=== PATIENT | female | born 1950 | race Caucasian/White ===

== ENCOUNTER 2018-03-02 09:31 | Inpatient (IN) | payer OTHER ==
[2018-03-02 11:12] LABS: Absolute Lymphocytes (CBC) 0.8 K/uL (0.7-4.9); Absolute Monocytes 0.8 K/uL (0.1-1.3)
[2018-03-02 11:16] LABS: Basophils % 0.1 % (0-1.3); Eosinophils % 0.3 % (0-4.4); Hematocrit 29.4 % (36.0-45.0); Lymphocytes % 6.4 % (15.3-44.8); MCH 32.5 pg (27.0-35.0); MCV 85.3 fL (80-100); Protime INR 0.97; RBC Red Blood Cell Count 3.45 M/uL (3.86-4.86)
[2018-03-02 11:29] LABS: Glucose Level 100 mg/dL (65-120)
[2018-03-02 11:30] LABS: Bicarbonate 30 mEq/L (21-31); Potassium 3.1 mEq/L (3.6-5.0)
[2018-03-02 11:32] LABS: Sodium Level 108 mEq/L (135-145)
[2018-03-02] MEDS ORDERED: ONDANSETRON 4 MG/2 ML VIAL ONE (11:36)
[2018-03-02 11:39] LABS: ALT/SGPT 55 IU/L (10-60); AST/SGOT 156 IU/L (10-42); Alkaline Phosphatase 57 IU/L (42-121); BUN Blood Urea Nitrogen 10 mg/dL (6-20); Bilirubin Direct 0.1 mg/dL (0-0.2); Bilirubin Total 0.4 mg/dL (0.3-1.2); Protein, Total 6.7 g/dL (6.0-8.3)
[2018-03-02 11:50] LABS: CKMB Creatine Kinase MB 95.3 ng/ml (0.3-4.0); Magnesium 1.4 mg/dL (1.8-2.5)
[2018-03-02 11:51] LABS: Creatine Phosphokinase 2983 IU/L (22-269)
[2018-03-02] MEDS ORDERED: NA CHLORIDE 3% 500 ML ONE ×2 (12:00→22:09)
[2018-03-02] MEDS ORDERED: MAGNESIUM SULFATE 1 gm IVPB 1 GM/100 ML BAG IV ONE (12:02)
--- NOTE | 2018-03-02 12:13 | ER ---
Nurse's Notes [facility] Name: Belem Villegas Age: 67 yrs Sex: Female : 1950 Arrival Date: 03/02/2018 Time: 09:35 Bed 18 Private MD: Samantha Angeles C Diagnosis: Vomiting;Hyponatremia;Hypomagnesemia Presentation: 03/02 09:52 Presenting complaint: Patient states: pt reports N/V for 3-4 days and being "foggy," em denies abd pain. Transition of care: patient was not received from another setting of care. Onset of symptoms was February 26, 2018. Initial Sepsis Screen: Does the patient meet any 2 criteria? No. Patient's initial sepsis screen is negative. Does the patient have a suspected source of infection? No. Patient's initial sepsis screen is negative. Care prior to arrival: None. 09:52 Method Of Arrival: Ambulatory em 09:52 Acuity: [place] 3 iw Historical: - Allergies: 09:56 No Known Allergies; em - Home Meds: 11:53 hydrochlorothiazide 12.5 mg Oral tab 1 tab once daily [Active]; levothyroxine 137 mcg em tab 1 tab once daily [Active]; ranitidine HCl 300 mg Oral cap 1 cap once daily [Active]; glimepiride 2 mg Oral tab 1 tab once daily [Active]; metoprolol tartrate 25 mg Oral tab 1 tab 2 times per day [Active]; rosuvastatin 20 mg oral tab 1 tab once daily [Active]; Janumet XR 100-1,000 mg oral TM24 [Active]; - PMHx: 09:56 Diabetes - NIDDM; Hyperlipidemia; Hypertension; Hypothyroidism; em - PSHx: 09:56 Hysterectomy; [place]. knee sx; em - Immunization history:: Adult Immunizations up to date. - Social history:: Smoking status: Patient/guardian denies using tobacco. Screenin:55 Abuse screen: Denies threats or abuse. Nutritional screening: No deficits noted. em Tuberculosis screening: No symptoms or risk factors identified. Fall Risk None identified. Assessment: 10:05 General: Appears in no apparent distress. uncomfortable, Behavior is calm, cooperative, em Reports reports N/V for 3-4 days, reports fever. Pain: Denies pain. Neuro: Level of Consciousness is awake, alert, obeys commands, Oriented to person, place, time, situation, Speech is normal, Reports feeling "foggy" . Cardiovascular: Capillary refill < 3 seconds Patient's skin is warm and dry. Respiratory: Airway is patent Respiratory effort is even, unlabored, Respiratory pattern is regular, symmetrical, Breath sounds are clear bilaterally. GI: Abdomen is round non-distended, Bowel sounds present X 4 quads. Abd is soft and non tender X 4 quads. Reports nausea, vomiting, Patient currently denies diarrhea. : No signs and/or symptoms were reported regarding the genitourinary system. EENT: No signs and/or symptoms were reported regarding the EENT system. Derm: Skin is intact, Skin is pink, warm \\T\\ dry. Musculoskeletal: Range of motion: intact in all extremities. 10:20 Reassessment: Patient appears in no apparent distress at this time. No changes from iw previously documented assessment. I agree with above assessment by Anand Sims LVN. 10:50 Reassessment: Patient appears in no apparent distress at this time. Patient and/or em family updated on plan of care and expected duration. Pain level reassessed. Patient is alert, oriented x 3, equal unlabored respirations, skin warm/dry/pink. pt returned from CT via wheelchair. 11:30 Reassessment: Patient appears in no apparent distress at this time. pt reports nausea, em NOE Woodson notified, new orders received. 11:50 Reassessment: Patient appears in no apparent distress at this time. Patient and/or em family updated on plan of care and expected duration. Pain level reassessed. Patient is alert, oriented x 3, equal unlabored respirations, skin warm/dry/pink. Patient states feeling better. Patient states symptoms have improved. 12:45 Reassessment: Patient appears in no apparent distress at this time. Patient and/or em family updated on plan of care and expected duration. Pain level reassessed. Patient is alert, oriented x 3, equal unlabored respirations, skin warm/dry/pink. pt at bedside, resting comfortably Patient denies pain at this time. 13:50 Reassessment: Patient appears in no apparent distress at this time. Patient and/or em family updated on plan of care and expected duration. Pain level reassessed. Patient is alert, oriented x 3, equal unlabored respirations, skin warm/dry/pink. 14:50 Reassessment: Patient appears in no apparent distress at this time. Patient and/or em family updated on plan of care and expected duration. Pain level reassessed. Patient is alert, oriented x 3, equal unlabored respirations, skin warm/dry/pink. Patient states feeling better. Patient states symptoms have improved. 19:25 General: Appears in no apparent distress. Behavior is calm, cooperative. Pain: Denies ea pain. Neuro: Level of Consciousness is awake, alert, obeys commands, Oriented to person, place, time, situation, Speech is normal. Cardiovascular: Heart tones S1 S2 present Patient's skin is warm and dry. Respiratory: Airway is patent Respiratory effort is even, unlabored, Respiratory pattern is regular, symmetrical, Breath sounds are clear bilaterally. GI: Abdomen is round non-distended, Bowel sounds present X 4 quads. Abd is soft and non tender X 4 quads. Reports nausea, vomiting. : No signs and/or symptoms were reported regarding the genitourinary system. EENT: No signs and/or symptoms were reported regarding the EENT system. Derm: Skin is intact, Skin is pink, warm \\T\\ dry. 20:05 Reassessment: Patient and/or family updated on plan of care and expected duration. Pain ea level reassessed. Patient is alert, oriented x 3, equal unlabored respirations, skin warm/dry/pink. Report called to receiving ICU nurse. Vital Signs: 09:57 BP 143 / 64; Pulse 55; Resp 16; Temp 99.3(O); Pulse Ox 95% on R/A; Weight 104.33 kg; em Height 5 ft. 6 in. (167.64 cm); Pain 0/10; 11:45 BP 149 / 84; Pulse 58; Resp 18; Pulse Ox 94% on R/A; em 12:30 BP 149 / 75; Pulse 58; Resp 16; Pulse Ox 95% on R/A; Pain 0/10; em 13:30 BP 137 / 75; Pulse 58; Resp 18; Temp 98.0; Pulse Ox 96% on R/A; Pain 0/10; em 14:31 BP 130 / 64; Pulse 62; Resp 19; Pulse Ox 96% on R/A; Pain 0/10; em 19:26 BP 157 / 96; Pulse 65; Resp 18; Temp 98.2; Pulse Ox 98% ; Pain 0/10; ea 09:57 Body Mass Index 37.12 (104.33 kg, 167.64 cm) em ED Course: 09:35 Patient arrived in ED. mr 09:36 Samantha Angeles MD is Private Physician. mr 09:43 SimsAnand, BLACKSMITH APPRENTICE is Primary Nurse. em 09:55 Chintan Villa, NOE [facility] pm1 09:55 Felipe Jimenez MD is Attending Physician. pm1 09:57 Arm band placed on. em 09:58 Patient has correct armband on for positive identification. Bed in low position. Call em light in reach. Side rails up X2. Adult w/ patient. 10:24 CT completed. Patient moved to CT via wheelchair. Patient moved back from CT. cw1 10:25 CT Head Brain wo Cont In Process Unspecified. EDMS 10:42 Chest Pa And Lat (2 Views) XRAY In Process Unspecified. EDMS 11:09 Initial lab(s) drawn, by me, sent to lab. EKG done, by ED staff, reviewed by Felipe Jimenez MD. Inserted saline lock: 20 gauge in right antecubital area, using aseptic technique. Blood collected. 12:06 Samantha Angeles MD is Hospitalizing Provider. pm1 12:30 No provider procedures requiring assistance completed. Inserted saline lock: 20 gauge em in left antecubital area, using aseptic technique. 13:26 Urine collected: Kumari catheter specimen, clear. Kumari cath inserted, using sterile ms technique, 18 Fr., by me, balloon inflated, to gravity drainage, urine specimen collected. 15:41 Triage completed. iw 16:45 Patient admitted, IV remains in place. iw Administered Medications: 11:50 Drug: Zofran 4 mg Route: IVP; Site: right antecubital; iw 12:15 Follow up: Response: No adverse reaction; Nausea is decreased em 12:16 Drug: Magnesium Sulfate 1 grams Route: IVPB; Infused Over: 1 hrs; Site: right em antecubital; 14:34 Follow up: IV Status: Completed infusion; IV Intake: 100ml em 12:25 Drug: Sodium Chloride 3 % 100 ml Volume: 500 ml; Route: IV; Rate: 50 ml/hr; Site: left em antecubital; 14:34 Follow up: IV Status: Completed infusion; IV Intake: 100ml em 14:44 Drug: NS 0.9% 1000 ml Route: IV; Rate: 75 ml/hr; Site: right antecubital; em 15:45 Follow up: IV Status: Completed infusion; IV Intake: 100ml em Point of Care Testing: Blood Glucose: 10:04 Blood Glucose: 96 mg/dL; em Ranges: Intake: 14:34 IV: 100ml; Total: 100ml. em 14:34 IV: 100ml; Total: 200ml. em 15:45 IV: 100ml; Total: 300ml. em Outcome: 12:12 Decision to Hospitalize by Provider. pm1 16:44 Admitted to ER Hold. [facility]. iw 16:45 Condition: stable iw 16:45 Instructed on the need for admit. 20:36 Patient left the ED. ea Signatures: Dispatcher [employer] Latia Alberts mr Sims, Anand, BLACKSMITH APPRENTICE BLACKSMITH APPRENTICE em Samira Samuel RN RN Latia Gutierrez ms Dong, Crystal cw1 Chintan Villa, CAN FEEDER CAN FEEDER pm1 Peyton Sanchez RN RN ea Corrections: (The following items were deleted from the chart) 10:10 09:57 BP 143 / 64; Pulse 55bpm; Resp 16bpm; Pulse Ox 95% RA; 104.33 kg; Height 5 ft. 6 em in.; BMI: 37.1; Pain 0/10; em 15:12 14:31 BP 130 / 64; Pulse 18bpm; Resp 19bpm; Pulse Ox 96% RA; Pain 0/10; em em 15:13 13:30 BP 137 / 75; Pulse 58bpm; Resp 18bpm; Pulse Ox 96% RA; Pain 0/10; em em
--- NOTE | 2018-03-02 12:13 | EDPHYS ---
Physician Documentation [facility] Name: Belem Villegas Age: 67 yrs Sex: Female : 1950 Arrival Date: 03/02/2018 Time: 09:35 Bed 18 Private MD: Samantha Angeles C ED Physician Felipe Jimenez HPI: 03/02 15:47 This 67 yrs old Female presents to ER via Ambulatory with complaints of pm1 Vomiting, Fever. 15:47 The patient presents to the emergency department with vomiting, 3-4 episodes of pm1 vomiting for the past 3 days. Patient with a total of 2 episodes of diarrhea since onset 3 days ago. Onset: The symptoms/episode began/occurred 3 day(s) ago. Possible causes: unknown. The symptoms are aggravated by food or liquid The symptoms are alleviated by nothing. Associated signs and symptoms: Pertinent positives: subjective fever, "fogginess", Pertinent negatives: abdominal pain, constipation, dysuria, GI bleeding. Severity of symptoms: in the emergency department the symptoms are worse. The patient has not experienced similar symptoms in the past. The patient has not recently seen a physician, the patient's primary care provider is Dr. Angeles. Patient presenting to the emergency department with 3 days of nausea and vomiting with 3-4 episodes daily. Patient with 2 episodes of diarrhea since onset. Patient denies abdominal pain, headache, chest pain. No shortness of breath. Patient reports that she feels "fogginess.". Historical: - Allergies: 09:56 No Known Allergies; em - Home Meds: 11:53 hydrochlorothiazide 12.5 mg Oral tab 1 tab once daily [Active]; levothyroxine 137 mcg em tab 1 tab once daily [Active]; ranitidine HCl 300 mg Oral cap 1 cap once daily [Active]; glimepiride 2 mg Oral tab 1 tab once daily [Active]; metoprolol tartrate 25 mg Oral tab 1 tab 2 times per day [Active]; rosuvastatin 20 mg oral tab 1 tab once daily [Active]; Janumet XR 100-1,000 mg oral TM24 [Active]; - PMHx: 09:56 Diabetes - NIDDM; Hyperlipidemia; Hypertension; Hypothyroidism; em - PSHx: 09:56 Hysterectomy; [place]. knee sx; em - Immunization history:: Adult Immunizations up to date. - Social history:: Smoking status: Patient/guardian denies using tobacco. ROS: 15:47 Eyes: Negative for injury, pain, redness, and discharge, ENT: Negative for injury, pm1 pain, and discharge, Neck: Negative for injury, pain, and swelling, Cardiovascular: Negative for chest pain, palpitations, and edema, Respiratory: Negative for shortness of breath, cough, wheezing, and pleuritic chest pain. 15:47 Back: Negative for injury and pain, : Negative for injury, bleeding, discharge, and swelling, MS/Extremity: Negative for injury and deformity, Skin: Negative for injury, rash, and discoloration. 15:47 Constitutional: Positive for poor PO intake, subjective fever, Negative for body aches, chills. 15:47 Abdomen/GI: Positive for nausea, vomiting, and diarrhea, Negative for abdominal pain. 15:47 Neuro: Negative for dizziness, numbness, syncope, near syncope, tingling, weakness. Exam: 15:47 Constitutional: This is a well developed, well nourished patient who is awake, alert, pm1 and in no acute distress. Head/Face: Normocephalic, atraumatic. Eyes: Pupils equal round and reactive to light, extra-ocular motions intact. Lids and lashes normal. Conjunctiva and sclera are non-icteric and not injected. Cornea within normal limits. Periorbital areas with no swelling, redness, or edema. ENT: Nares patent. No nasal discharge, no septal abnormalities noted. Tympanic membranes are normal and external auditory canals are clear. Oropharynx with no redness, swelling, or masses, exudates, or evidence of obstruction, uvula midline. Mucous membranes moist. Neck: Trachea midline, no thyromegaly or masses palpated, and no cervical lymphadenopathy. Supple, full range of motion without nuchal rigidity, or vertebral point tenderness. No Meningismus. Chest/axilla: Normal chest wall appearance and motion. Nontender with no deformity. No lesions are appreciated. Cardiovascular: Regular rate and rhythm with a normal S1 and S2. No gallops, murmurs, or rubs. No pulse deficits. Respiratory: Lungs have equal breath sounds bilaterally, clear to auscultation and percussion. No rales, rhonchi or wheezes noted. No increased work of breathing, no retractions or nasal flaring. Abdomen/GI: Soft, non-tender, with normal bowel sounds. No distension or tympany. No guarding or rebound. No evidence of tenderness throughout. Back: No spinal tenderness. No costovertebral tenderness. Full range of motion. Skin: Warm, dry with normal turgor. Normal color with no rashes, no lesions, and no evidence of cellulitis. MS/ Extremity: Pulses equal, no cyanosis. Neurovascular intact. Full, normal range of motion. 15:47 Neuro: Orientation: is normal, Mentation: is normal, Motor: moves all fours, Sensation: is normal, no obvious gross deficits. Vital Signs: 09:57 BP 143 / 64; Pulse 55; Resp 16; Temp 99.3(O); Pulse Ox 95% on R/A; Weight 104.33 kg; em Height 5 ft. 6 in. (167.64 cm); Pain 0/10; 11:45 BP 149 / 84; Pulse 58; Resp 18; Pulse Ox 94% on R/A; em 12:30 BP 149 / 75; Pulse 58; Resp 16; Pulse Ox 95% on R/A; Pain 0/10; em 13:30 BP 137 / 75; Pulse 58; Resp 18; Temp 98.0; Pulse Ox 96% on R/A; Pain 0/10; em 14:31 BP 130 / 64; Pulse 62; Resp 19; Pulse Ox 96% on R/A; Pain 0/10; em 19:26 BP 157 / 96; Pulse 65; Resp 18; Temp 98.2; Pulse Ox 98% ; Pain 0/10; ea 09:57 Body Mass Index 37.12 (104.33 kg, 167.64 cm) em MDM: 09:56 Patient medically screened. pm1 12:05 Data reviewed: vital signs. Data interpreted: Pulse oximetry: on room air is 94 %. pm1 Interpretation: normal. Counseling: I had a detailed discussion with the patient and/or guardian regarding: the historical points, exam findings, and any diagnostic results supporting the discharge/admit diagnosis, lab results, radiology results, the need for further work-up and treatment in the hospital. 12:58 Physician consultation: A Karthik COLINDRES was contacted at 12:58, regarding admission, pm1 patient's condition, After completion of 100 mL infusion of hypertonic 3% solution, perform labs: stat Chem 7, cortisol level, and procalcitonin level and start infusion of NS at 75 cc/hr . Call back with lab results and Admission to ICU. . 15:47 Physician consultation: A Karthik COLINDRES was contacted at 15:48, regarding patient's pm1 condition, repeat BMP and cortisol level results, would like medications started, NS 125 mL/hr. 03/02 10:11 Order name: Basic Metabolic Panel; Complete Time: 11:59 pm03/02 10:11 Order name: BNP; Complete Time: 11:59 pm03/02 10:11 Order name: CBC with Diff; Complete Time: 14:12 pm03/02 10:11 Order name: Ckmb; Complete Time: 11:59 pm03/02 10:11 Order name: CPK; Complete Time: :59 pm03/02 10:11 Order name: LFT's; Complete Time: 11:59 pm03/02 10:11 Order name: Magnesium; Complete Time: 11:59 pm03/02 10:11 Order name: PT-INR; Complete Time: 11:33 pm03/02 10:11 Order name: Ptt, Activated; Complete Time: 11:33 pm03/02 10:11 Order name: Troponin (emerg Dept Use Only); Complete Time: 11:59 pm03/02 10:11 Order name: Glucose, Ancillary Testing; Complete Time: 10:13 EDMS 03/02 10:42 Order name: TSH; Complete Time: 12:12 pm03/02 11:19 Order name: CBC Smear Scan; Complete Time: 14:12 EDMS 03/02 11:45 Order name: Osmolality, Serum; Complete Time: 12:58 pm03/02 10:11 Order name: CT Head Brain wo Cont; Complete Time: 15:19 pm03/02 10:11 Order name: Chest Pa And Lat (2 Views) XRAY; Complete Time: 15:19 pm03/02 11:45 Order name: Urine Osmolality; Complete Time: 13:45 pm03/02 11:45 Order name: Urine Sodium Random; Complete Time: 14:12 pm03/02 13:27 Order name: Urine Dipstick--Ancillary (enter results) eb 03/02 13:48 Order name: Urine Dipstick-Ancillary; Complete Time: 14:12 EDMS 03/02 14:30 Order name: Procalcitonin pm1 03/02 14:30 Order name: Chem 7 pm03/02 14:30 Order name: Cortisol pm1 03/02 15:04 Order name: Basic Metabolic Panel; Complete Time: 15:43 EDMS 03/02 15:20 Order name: Cortisol; Complete Time: 15:43 EDMS 03/02 16:44 Order name: Chem 7 iw 03/02 17:06 Order name: Basic Metabolic Panel; Complete Time: 17:24 EDMS 03/02 18:47 Order name: Basic Metabolic Panel EDMS 03/02 18:47 Order name: Magnesium EDMS 03/02 10:11 Order name: EKG; Complete Time: 10:11 pm1 03/02 10:11 Order name: Cardiac monitoring; Complete Time: 11:05 pm03/02 10:11 Order name: EKG - Nurse/Tech; Complete Time: 11:05 pm1 03/02 10:11 Order name: IV Saline Lock; Complete Time: 11:05 pm03/02 10:11 Order name: Labs collected and sent; Complete Time: 11:05 pm1 03/02 10:11 Order name: O2 Per Protocol; Complete Time: 11:05 pm1 03/02 10:11 Order name: O2 Sat Monitoring; Complete Time: 11:05 pm03/02 10:11 Order name: Urine Dipstick-Ancillary (obtain specimen); Complete Time: 13:26 pm1 Administered Medications: 11:50 Drug: Zofran 4 mg Route: IVP; Site: right antecubital; iw 12:15 Follow up: Response: No adverse reaction; Nausea is decreased em 12:16 Drug: Magnesium Sulfate 1 grams Route: IVPB; Infused Over: 1 hrs; Site: right em antecubital; 14:34 Follow up: IV Status: Completed infusion; IV Intake: 100ml em 12:25 Drug: Sodium Chloride 3 % 100 ml Volume: 500 ml; Route: IV; Rate: 50 ml/hr; Site: left em antecubital; 14:34 Follow up: IV Status: Completed infusion; IV Intake: 100ml em 14:44 Drug: NS 0.9% 1000 ml Route: IV; Rate: 75 ml/hr; Site: right antecubital; em 15:45 Follow up: IV Status: Completed infusion; IV Intake: 100ml em Point of Care Testing: Blood Glucose: 10:04 Blood Glucose: 96 mg/dL; em Ranges: Critical Glucose Levels:Adult <50 mg/dl or >400 mg/dl <40 mg/dl or >180 mg/dl Disposition: 03/03 12:39 Co-signature as Attending Physician, Felipe Jimenez MD. Disposition: 03/02/18 12:12 Hospitalization ordered by Samantha Angeles for Inpatient Admission. Preliminary diagnosis are Vomiting, Hyponatremia, Hypomagnesemia. - Bed requested for Intensive Care Unit. - Status is Inpatient Admission. ea - Condition is Fair. - Problem is new. - Symptoms have improved. UTI on Admission? No Signatures: Dispatcher [employer] Marlene Clark RN RN dw Munoz, Edgar, POINTER HELPER POINTER HELPER em Samira Samuel RN RN iw Marinas, Patrick, CONTENT STRATEGIST CONTENT STRATEGIST pm1 Peyton Sanchez RN RN ea Starr, Gregory, MD MD Sofia Ivory
[2018-03-02 13:48] LABS: Urine Blood 2+ (NEG); Urine Glucose NEGATIVE (NEG); Urine Protein 3+ (NEG); Urine Specific Gravity 1.025 (1.005-1.030); Urine pH 6.5 (5.0-7.0)
[2018-03-02 14:04] LABS: Urine White Blood Cell Casts OK
[2018-03-02 14:05] LABS: Anisocytosis 1+; Blood Morphology Comment NOTED (NOT SEEN); Platelet Estimate ADEQ
[2018-03-02] MEDS ORDERED: NA CHLORIDE 0.9% 1,000 ML ONE (14:40)
[2018-03-02 15:04] LABS: Glucose Level 82 mg/dL (65-120)
[2018-03-02 15:05] LABS: BUN Blood Urea Nitrogen 9 mg/dL (6-20)
--- NOTE | 2018-03-02 15:14 | RAD REPORT ---
EXAM DESCRIPTION: CT - Head Brain Wo Cont - 03/02/2018 10:25 am CLINICAL HISTORY: Transient alteration of awareness. Hearing Examiner malfunction precluded earlier written report. A verbal report was telephoned to the ref erring clinician at the time of the study. COMPARISON: None. TECHNIQUE: Axial 5 mm thick images of the head were obtained without IV contrast. All CT scans are performed using dose optimization technique as appropriate and may include automated exposure control or mA/KV adjustment according to patient size. FINDINGS: No intracranial hemorrhage, mass, edema or shift of mid-line structures. No acute infarcti on changes seen. No abnormal extra-axial fluid collections. Ventricles are normal. Mastoid air cells and visualized portions of the paranasal sinuses are clear. No acute bony findings. IMPRESSION: Negative non-contrast CT head examination.
--- NOTE | 2018-03-02 15:16 | RAD REPORT ---
EXAM DESCRIPTION: RAD - Chest Pa And Lat (2 Views) - 03/02/2018 10:45 am CLINICAL HISTORY: Cough, fever. Fashion Patternmaker malfunction precluded earlier dictation. COMPARISON: September 2011 TECHNIQUE: PA and lateral views of the chest were obtained. FINDINGS: The lungs are underinflated. Lateral view has substantial motion degradation. Interstitial markings are prominent in each lung base. No large consolidation. Failure is unlikely. Trachea is mi dline. Vasculature is within limits of normal. Heart size is normal for body habitus and portable i maging. No pleural effusion or pneumothorax seen. No acute bony finding noted. No aortic abnormalit y. IMPRESSION: Prominent interstitial markings at both lung bases. This is increased from 2010. A progr essive fibrotic process or an interstitial infiltrates/ edema could have this presentation. Significant failure or volume overload are doubtful.
[2018-03-02 15:22] LABS: Bicarbonate 30 mEq/L (21-31)
[2018-03-02 15:24] LABS: Sodium Level 108 mEq/L (135-145)
[2018-03-02] MEDS ORDERED: D50W 25 GM/50 ML SYRINGE IV PRN (15:28)
[2018-03-02] MEDS ORDERED: ACETAMINOPHEN 500 MG TAB PO PRN (15:28)
[2018-03-02] MEDS ORDERED: GLUCAGON 1 MG/VIAL IM PRN (15:28)
[2018-03-02] MEDS: NA CHLORIDE 0.9% 1,000 ML IV SCH ×2 (16:30→21:00)
[2018-03-02] MEDS: INSULIN -REGULAR HUMAN 50 UNIT/0.5 ML ML SQ SCH ×2 (16:30→21:00)
[2018-03-02] MEDS: ENOXAPARIN 40 MG/0.4 ML SQ SCH (17:00)
[2018-03-02 17:06] LABS: BUN Blood Urea Nitrogen 9 mg/dL (6-20); Glucose Level 64 mg/dL (65-120)
[2018-03-02 17:14] LABS: Bicarbonate 29 mEq/L (21-31)
[2018-03-02 17:17] LABS: Sodium Level 109 mEq/L (135-145)
[2018-03-02] MEDS ORDERED: POTASSIUM 25 MEQ EFFERV TAB ONE (17:51)
[2018-03-02] MEDS: CEFTRIAXONE/SWI 1gm 1 GM/10 ML SYR IV SCH (18:00)
[2018-03-02] MEDS ORDERED: POTASSIUM 25 MEQ EFFERV TAB PO ONE (18:17)
[2018-03-02] MEDS ORDERED: CEFTRIAXONE/SWI 1gm 1 GM/10 ML SYR ONE (18:24)
[2018-03-02] MEDS ORDERED: ENOXAPARIN 40 MG/0.4 ML SQ ONE (18:24)
[2018-03-02 18:43] LABS: BUN Blood Urea Nitrogen 9 mg/dL (6-20); Bicarbonate 29 mEq/L (21-31); Glucose Level 115 mg/dL (65-120); Magnesium 1.5 mg/dL (1.8-2.5)
[2018-03-02 18:47] LABS: Sodium Level 108 mEq/L (135-145)
[2018-03-02] MEDS ORDERED: Magnesium Sulfate 2gm IVPB 2 G/50 ML BAG IV ONE ×2 (19:32→19:42)
[2018-03-02 20:49] LABS: BUN Blood Urea Nitrogen 9 mg/dL (6-20); Glucose Level 103 mg/dL (65-120)
[2018-03-02 20:54] LABS: Bicarbonate 27 mEq/L (21-31); Potassium 3.5 mEq/L (3.6-5.0)
[2018-03-02] MEDS: FAMOTIDINE 20 MG/2 ML VIAL IV SCH (21:00)
[2018-03-02] MEDS ORDERED: CEFTRIAXONE 1 GM/NS 50 ML 1 GM/50 ML BAG IV SCH (21:00)
[2018-03-02 21:02] LABS: Sodium Level 107 mEq/L (135-145)
[2018-03-02] MEDS ORDERED: NA CHLORIDE 3% 500 ML IV SCH (22:00)
[2018-03-02] MEDS: NA CHLORIDE 3% 500 ML IV SCH (22:13)
[2018-03-03 01:25] LABS: BUN Blood Urea Nitrogen 8 mg/dL (6-20); Glucose Level 105 mg/dL (65-120)
[2018-03-03 01:49] LABS: Bicarbonate 28 mEq/L (21-31); Potassium 3.3 mEq/L (3.6-5.0); Sodium Level 110 mEq/L (135-145)
[2018-03-03 05:03] LABS: Absolute Neutrophil 10.5 K/uL (1.8-8.0); Basophils % 0.2 % (0-1.3); Eosinophils % 0.8 % (0-4.4); Hematocrit 31.3 % (36.0-45.0); Lymphocytes % 7.7 % (15.3-44.8); MCH 31.2 pg (27.0-35.0); MCV 86.9 fL (80-100); MPV 8.6 fL (7.6-11.3); Monocytes % 7.6 % (3.3-12.3)
[2018-03-03] MEDS: CEFTRIAXONE/SWI 1gm 1 GM/10 ML SYR IV SCH ×2 (05:11→17:13)
[2018-03-03 05:30] LABS: ALT/SGPT 57 IU/L (10-60); AST/SGOT 146 IU/L (10-42); Albumin 3.8 g/dL (3.2-5.5); Alkaline Phosphatase 58 IU/L (42-121); BUN Blood Urea Nitrogen 7 mg/dL (6-20); Bilirubin Direct 0.1 mg/dL (0-0.2); Bilirubin Total 0.6 mg/dL (0.3-1.2); Glucose Level 116 mg/dL (65-120); HDL Cholesterol 47 mg/dL (29-89); LDL Cholesterol, Calculated 33 (<130); Protein, Total 6.4 g/dL (6.0-8.3)
[2018-03-03 05:31] LABS: Bicarbonate 27 mEq/L (21-31); Potassium 3.2 mEq/L (3.6-5.0)
[2018-03-03 05:33] LABS: CKMB Creatine Kinase MB 60.8 ng/ml (0.3-4.0); Creatine Phosphokinase 2056 IU/L (22-269); Sodium Level 108 mEq/L (135-145)
[2018-03-03 06:26] LABS: Magnesium 1.5 mg/dL (1.8-2.5)
--- NOTE | 2018-03-03 06:43 | HP ---
Date of Admission: 03/02/2018 Chief Complaint: Feeling weak, dizzy, cough, vomiting. History Of Present Illness: A 67-year-old female patient, who was doing fine in her normal usual sta te of health until last few days. She has been having some cough, coughing up some clear mucus, but also some vomiting, nausea. Has very poor appetite. Last 2 days, she has not had anything to eat or drink as described by her and she is taking all her medications as prescribed. She has been feeling extremely weak, unsteady on her feet and somewhat confused. No head injury. No abdominal p ain. No diarrhea. She was brought into the emergency room. She was evaluated. I saw her also in t emergency room and further workup was done in the ER, which came back with severe hyponatremia wit h her serum sodium level of 108. Decision was made to admit her to intensive care unit for further e valuation and management of this problem. Allergies: NO KNOWN ALLERGIES. Medications: Amlodipine 5 mg p.o. daily, Crestor 20 mg p.o. daily, glimepiride 2 mg she takes one ta blet every day with breakfast, hydrochlorothiazide 12.5 mg p.o. daily, Janumet XR 100/1000 mg 1 p.o. daily with evening meal, levothyroxine 137 mcg p.o. daily, metoprolol 50 mg tablet she takes half tab let twice a day, ranitidine 300 mg at bedtime, Xyzal 5 mg daily as needed for allergies. Review of Systems: PAY STATION COLLECTOR: As mentioned above. GI: As mentioned above. RESPIRATORY: As mentioned above. All other systems reviewed and negative. Past Medical History: Significant for hypertension, mixed hyperlipidemia, type 2 diabetes mellitus, hypothyroidism, gastroesophageal reflux disease, allergic rhinitis. Also significant for coronary ar raul disease and the patient had a cardiac cath done July 13, 2009 and it showed 30% stenosis of LAD and no intervention was done. Past Surgical History: Arthroscopic knee surgery and hysterectomy. Family History: Significant for diabetes mellitus and heart disease, liver problem with hepatitis C. Social History: Occasional smoking, use of alcohol negative. Physical Examination: Vital Signs: When she first came into the emergency room; blood pressure 143/64, pulse 55, respirato ry rate 16, temperature 99.3, pulse ox 95%, weight 104.33 kg, height 5 feet 6 inches. General: The patient is awake, alert, but appears weaker than normal. A little slow to respond when I am asking her questions. HEENT: Head atraumatic, normocephalic. Conjunctivae nonerythematous. Sclerae white. Mouth, no thr ush or edema noted. Ears/Nose, no mass, lesion, discharge noted. Neck: Supple. No JVD, lymph nodes, bruit, thyromegaly noted. Lungs: Bilateral good equal air entry. Clear to auscultation. No rhonchi. No rales. Heart: Normal heart sounds, no murmur or gallop. Abdomen: Soft, bowel sounds normal. No guarding, rigidity, tenderness, mass, hepatosplenomegaly, dis tention, or bruit noted. Extremities: No leg edema. No calf tenderness. Skin: No rash, ulcer, cellulitis. Lymphatics: No lymph node enlargement in neck, supraclavicular, infraclavicular region. Neuro: No focal neurological deficit. Chest: Unremarkable. External Genitalia: Deferred. Rectal: Deferred. Laboratory Data: Chest x-ray prominent interstitial marking, both lung bases, increased from 2011. This could indicate either progressive fibrotic change or infiltrate or edema pattern. CAT scan of t he head without contrast, no acute ST-T changes. White count 12.6, hemoglobin 11.2, platelets 342, 8 7% neutrophils. INR 0.97. Sodium 108, potassium 3.1, chloride 67, bicarb 30, BUN 10, creatinine 0.4 2, glucose 100. Magnesium 1.4. Liver function tests, SGOT 156, SGPT 55, alkaline phosphatase 57. T otal bilirubin 0.4, CPK 2983, CK-MB 95.3. Troponin less than 0.03. BNP 246. TSH 1.26. Serum osmol ality, 219. Random serum cortisol 17.2. Urine osmolality 547, urine sodium 37. Urinalysis negative for nitrite, esterase, 2+ blood, 3+ protein. Impression: 1.Hyponatremia. 2.Hypokalemia. 3.Hypomagnesemia. 4.Rhabdomyolysis. 5.Rule out pneumonia. 6.Anemia. 7.Hypertension. 8.Type 2 diabetes mellitus. 9.Mixed hyperlipidemia. 10.Hypothyroidism. 11.Allergic rhinitis. 12.Gastroesophageal reflux disease. Plan: Admit the patient to hospital for further evaluation and management of this problem. The george ent is appropriate for inpatient and is expected to spend 2 midnights in the hospital. She will be a dmitted to intensive care unit with this severe hyponatremia problem. We will go ahead and get a fas ting lipid profile done tomorrow morning and cortisol stimulation test done tomorrow morning. This c ould be very well SIADH and she gets regular blood tests done on outpatient basis and she has not had this kind of problem before. Her last blood work from December 05, 2017 had shown serum sodium of 13 8 and on September 04, 2017, it was 137. So, this is rather a new problem. We will try to investigate to see if she has any adrenal insufficiency and also will be interested in looking at her triglyceri de tomorrow morning. In any case, it appears that this might be a case of syndrome of inappropriate antidiuretic hormone secretion. We will not give her any hydrochlorothiazide. Give her IV fluid per order. After I saw her, she received 3% hypertonic saline solution 50 cc/hour x2 hours. So, total 100 cc of that fluid and after that, she has been getting normal saline at 125 cc/hour per order. We will monitor her sodium level closely and try to increase the sodium level slowly to avoid any compl ications from rapid rise. She has had 3 different blood tests done for monitoring and we will do ano ther one this evening and then make decision whether we need to get her back on 3% saline solution ov ernight or not. Electrolytes will be replaced per protocol. Empiric antibiotics will be given using ceftriaxone. We will go ahead and give DVT prophylaxis using Lovenox, GI prophylaxis will be given using famotidine. Keep her on clear liquid diet and we will go ahead and keep her n.p.o. after midni ght for cortisol stimulation test. Monitor fingerstick blood sugar closely. As she has not been eat ing well and was taking her medications, we will monitor her closely for hypoglycemia and if she does have hypoglycemia, we will treat with IV D50. The patient gets regular cancer screening test. Her last mammogram was in December of last year and when we saw her this year in December, did request ma mmogram, which was scheduled for January 07, 2018, but it appears that the patient has not gone for that particular mammogram, but last mammogram from December last year was normal. Her last colonoscopy w as in 2013 showing rectal polyp. FADIA/MODTona Voice ID: [id number]
[2018-03-03] MEDS: INSULIN -REGULAR HUMAN 50 UNIT/0.5 ML ML SQ SCH ×5 (07:17→21:00)
[2018-03-03] MEDS ORDERED: Magnesium Sulfate 2gm IVPB 2 G/50 ML BAG IV ONE (07:34)
[2018-03-03] MEDS ORDERED: SODIUM CHLORIDE 0.9% 10ML INJ IV ONE (08:00)
[2018-03-03] MEDS ORDERED: COSYNTROPIN 0.25 MG VIAL IV ONE (08:00)
[2018-03-03] MEDS ORDERED: HOME MED 1 EA UNK (Levothyroxine Sodium [Levothyroxine Sodium] 137 MCG) PO SCH (09:00)
[2018-03-03] MEDS: NA CHLORIDE 3% 500 ML IV SCH (09:22)
[2018-03-03 09:55] LABS: BUN Blood Urea Nitrogen 5 mg/dL (6-20); Glucose Level 93 mg/dL (65-120)
[2018-03-03 10:03] LABS: Bicarbonate 27 mEq/L (21-31)
[2018-03-03] MEDS: AMLODIPINE 5 MG TAB PO SCH (10:10)
[2018-03-03] MEDS: LEVOTHYROXINE SOD 0.112 MG TAB PO SCH (10:10)
[2018-03-03] MEDS: FAMOTIDINE 20 MG/2 ML VIAL IV SCH ×2 (10:10→22:18)
[2018-03-03] MEDS: LEVOTHYROXINE SOD 0.025 MG TAB PO SCH (10:10)
[2018-03-03] MEDS: METOPROLOL TAR 25 MG TAB PO SCH ×2 (10:10→22:17)
[2018-03-03 10:21] LABS: Sodium Level 116 mEq/L (135-145)
--- NOTE | 2018-03-03 10:24 | RAD REPORT ---
EXAM DESCRIPTION: RAD - Chest Single View - 03/03/2018 10:09 am CLINICAL HISTORY: Device placement PICC line placement COMPARISON: March 02 2018 FINDINGS: A PICC line has been inserted with its tip 1 centimeter into the right atrium. No other change is noted. IMPRESSION: A PICC line has been inserted with its tip 1 centimeter into the right atrium.
--- NOTE | 2018-03-03 10:32 | EKG ---
Test Date: 2018-03-02 Test Time: 11:03:00 Corporate Claims Examiner: MEASUREMENT RESULTS: Intervals: Rate: 54 VA: 302 QRSD: 104 QT: 448 QTc: 424 [place]: P: 32 VA: 302 QRS: -6 T: 50 INTERPRETIVE STATEMENTS: Sinus bradycardia with 1st degree AV block Minimal voltage criteria for LVH, may be normal variant Borderline ECG Compared to ECG 03/02/2018 11:01:19 Left ventricular hypertrophy now present Electronically Signed On 03-03-18 10:31:30 CDT by Hipolito Love
--- NOTE | 2018-03-03 10:32 | EKG ---
Test Date: 2018-03-02 Test Time: 11:01:19 Medicaid Specialist: MEASUREMENT RESULTS: Intervals: Rate: 57 MS: 278 QRSD: 114 QT: 482 QTc: 469 [place]: P: 34 MS: 278 QRS: -2 T: 57 INTERPRETIVE STATEMENTS: Sinus bradycardia with 1st degree AV block Otherwise normal ECG Compared to ECG 04/19/2002 12:31:00 First degree AV block now present Sinus tachycardia no longer present Electronically Signed On 03-03-18 10:31:33 CDT by Hipolito Love
[2018-03-03 10:35] LABS: Magnesium 1.9 mg/dL (1.8-2.5)
[2018-03-03] MEDS: KCL 20 MEQ/100 mL IVPB 20 MEQ/100 ML BAG IV SCH ×2 (10:52→12:31)
[2018-03-03] MEDS ORDERED: NA CHLORIDE 0.9% 1,000 ML IV SCH (11:00)
[2018-03-03 14:10] LABS: BUN Blood Urea Nitrogen 6 mg/dL (6-20); Bicarbonate 30 mEq/L (21-31); Glucose Level 182 mg/dL (65-120); Potassium 4.3 mEq/L (3.6-5.0)
[2018-03-03 14:14] LABS: Sodium Level 111 mEq/L (135-145)
[2018-03-03] MEDS ORDERED: NA CHLORIDE 3% 500 ML IV SCH ×2 (14:40→19:00)
[2018-03-03] MEDS ORDERED: FUROSEMIDE 40 MG/4 ML VIAL IV ONE (16:00)
[2018-03-03] MEDS: ENOXAPARIN 40 MG/0.4 ML SQ SCH (17:13)
[2018-03-03 17:34] LABS: BUN Blood Urea Nitrogen 7 mg/dL (6-20); Bicarbonate 29 mEq/L (21-31); Glucose Level 132 mg/dL (65-120); Potassium 4.2 mEq/L (3.6-5.0)
[2018-03-03 17:35] LABS: Sodium Level 116 mEq/L (135-145)
[2018-03-03 21:09] LABS: Potassium 3.5 mEq/L (3.6-5.0)
[2018-03-03] MEDS ORDERED: ALPRAZOLAM 0.25 MG TABLET PO PRN (21:59)
--- NOTE | 2018-03-03 23:40 | PN ---
Date of Progress Note: 03/03/2018 Subjective: The patient was seen this morning for followup. Lying in bed, not in any distress. She is feeling much better. She is back to her normal self. Laughing while talking to me and this is her baseline. So, overall there is improvement in her mental status since yesterday. No shortness of breath. No nausea, no vomiting. She is tolerating liquid diet well and we will advance her diet today to diabetic diet. Objective: Vital Signs: Reviewed. HEENT: Unremarkable. Lungs: Clear to auscultation. Heart: Heart sounds normal. Abdomen: Soft. Bowel sounds normal. No guarding, rigidity, tenderness, or distention. Extremities: No leg edema. Laboratory Data: White count 12.6, hemoglobin 11.2, and platelet count 291. Her sodium level at 1 a.m. was 110 with potassium 3.3, chloride 70. Her glucose dropped down to 75 at 3:23 a.m. and she received IV D50, and at 3:57, her sodium was 108, potassium 3.2, chloride 72. We have done frequent monitoring of her electrolytes, and with 3% hypertonic saline solution, her sodium level went up to 116, and at that time, we stopped her 3% saline solution as it went up from 108 to 116 over 3-4-hour period of time, and then subsequent sodium dropped down to 111. At that time, we started 3% saline solution at 30 cc/hour and last sodium from 5 p.m. today is 116 again. Impression: 1. Hyponatremia. 2. Syndrome of inappropriate antidiuretic hormone. 3. Rule out pneumonia. 4. Hypertension. 5. Type 2 diabetes mellitus. 6. Hyperlipidemia. 7. Rhabdomyolysis. Plan: The patient's CPK this morning was 2055. We will go ahead and monitor that. Renal function is normal. Cortisol stimulation test was done this morning. We will follow up on results. Her sodium level will be monitored closely and our goal is to slowly increase the sodium level and avoid any rapid rise in sodium. She is responding very well to hypertonic saline solution and we will repeat another blood work this evening. Depending on that, we will decide what to do with hypertonic saline solution overnight. She is tolerating her diabetic diet very well. Physical Therapy consult was requested to start helping the patient to ambulate. She is requesting something to help her with sleep at night time. She takes Tylenol PM at home, but we will go ahead and try to give her medication like alprazolam. We will continue current antibiotic and DVT prophylaxis with Lovenox. I will see her tomorrow for followup. The patient will remain in ICU while she is getting hypertonic saline solution. There is a good possibility that she will remain in ICU tomorrow and possible transfer out of ICU to regular room day after tomorrow depending on her condition. Details and plan of treatment discussed with her. FADIA/MODTona Voice ID: [id number] Report ID: [id number] RUTHIE
[2018-03-04 01:50] LABS: BUN Blood Urea Nitrogen 7 mg/dL (6-20); Glucose Level 107 mg/dL (65-120)
[2018-03-04 02:03] LABS: Bicarbonate 31 mEq/L (21-31); Potassium 3.5 mEq/L (3.6-5.0); Sodium Level 122 mEq/L (135-145)
[2018-03-04] MEDS: CEFTRIAXONE/SWI 1gm 1 GM/10 ML SYR IV SCH ×2 (06:06→17:03)
[2018-03-04] MEDS: LEVOTHYROXINE SOD 0.112 MG TAB PO SCH (06:06)
[2018-03-04] MEDS: LEVOTHYROXINE SOD 0.025 MG TAB PO SCH (06:06)
[2018-03-04 06:19] LABS: BUN Blood Urea Nitrogen 6 mg/dL (6-20); Bicarbonate 33 mEq/L (21-31); Creatine Phosphokinase 498 IU/L (22-269); Glucose Level 97 mg/dL (65-120); Magnesium 1.9 mg/dL (1.8-2.5); Potassium 3.7 mEq/L (3.6-5.0); Sodium Level 128 mEq/L (135-145)
[2018-03-04 06:46] LABS: Absolute Lymphocytes (CBC) 0.9 K/uL (0.7-4.9); Absolute Monocytes 0.9 K/uL (0.1-1.3); Absolute Neutrophil 5.2 K/uL (1.8-8.0); Basophils % 0.6 % (0-1.3); Eosinophils % 1.9 % (0-4.4); Lymphocytes % 12.7 % (15.3-44.8); MCH 32.2 pg (27.0-35.0); MCV 89.3 fL (80-100); MPV 7.9 fL (7.6-11.3); Monocytes % 12.9 % (3.3-12.3); RBC Red Blood Cell Count 3.58 M/uL (3.86-4.86)
[2018-03-04] MEDS: INSULIN -REGULAR HUMAN 50 UNIT/0.5 ML ML SQ SCH ×4 (07:30→21:00)
[2018-03-04] MEDS ORDERED: D5W 1,000 ML IV SCH (08:00)
[2018-03-04] MEDS: AMLODIPINE 5 MG TAB PO SCH (08:03)
[2018-03-04] MEDS: METOPROLOL TAR 25 MG TAB PO SCH ×2 (08:03→21:55)
[2018-03-04] MEDS: FAMOTIDINE 20 MG/2 ML VIAL IV SCH ×2 (08:04→21:55)
[2018-03-04 10:17] LABS: Potassium 3.9 mEq/L (3.6-5.0)
[2018-03-04] MEDS ORDERED: POTASSIUM CL SA 10 MEQ TAB PO ONE (11:52)
[2018-03-04 14:30] LABS: Potassium 4.1 mEq/L (3.6-5.0)
--- NOTE | 2018-03-04 15:53 | RAD REPORT ---
EXAM DESCRIPTION: MRI - Brain Wo Cont - 03/04/2018 3:43 pm CLINICAL HISTORY: Altered consciousness. COMPARISON: 03/02/2018 TECHNIQUE: Multi-sequence, multiplanar MR imaging of the brain was performed without contrast. FINDINGS: No intracranial hemorrhage, hydrocephalus or extra-axial fluid collections.Minimal T2 and FLAIR hyperintensities are present. No edema or shift of midline structures. No findings to suspect b rain mass. DWI is negative for acute CVA. Midline structures are normally formed. Moderate upper cervical degenerative changes. Mastoid air cells and paranasal sinuses are clear. IMPRESSION: No acute intracranial abnormality.
[2018-03-04] MEDS: ENOXAPARIN 40 MG/0.4 ML SQ SCH (16:57)
[2018-03-04 18:18] LABS: Potassium 4.2 mEq/L (3.6-5.0)
[2018-03-04 21:26] LABS: Potassium 4.3 mEq/L (3.6-5.0)
--- NOTE | 2018-03-05 00:37 | CON ---
Reason For Consultation: Consultation called because of altered mental status and called by Dr. Angeles . History Of Present Illness: Mrs. Villegas is a 67-year-old, right-handed patient who was doi ng well until about a week ago when she began taking supplements that included Liver Cleanse. She de veloped significant nausea, vomiting, and had cough with clear sputum, poor appetite, and was drinkin g as per the patient at least a gallon of water per day. She became confused, diffusely weak, and sullivan d slurred speech and was brought into the [facility] by her on the 02 of March. H er emergency room evaluation revealed a severe hyponatremia to 107. She was treated with hypertonic saline initially but gently and then normal saline. She was admitted to the ICU for further manageme nt. Over the next 2 days, she did have some mild improvement in her condition as her sodium was incr eased gently. Her head CT scan was unremarkable for any acute ischemic or hemorrhagic change. She s ubsequently had a brain MRI without contrast showing no evidence of central pontine myelinolysis. Th e study was unremarkable. There is no evidence of stroke. No evidence of bleeding. The patient sin ce had mild intermittent slurring of speech, but has become more oriented, follows all commands appro priately and has no evidence of ongoing or worsening confusion. Past Medical History: Dyslipidemia, diabetes mellitus type 2, gastroesophageal reflux disease, hypot hyroidism, coronary artery disease. Past Surgical History: Cardiac catheterization reported with LAD stenosis of 30%. Surgical history also includes arthroscopic knee surgery and hysterectomy. Family History: Diabetes mellitus, heart disease. Social History: No alcohol use. Positive for tobacco use. Allergies: NO KNOWN DRUG ALLERGIES. Review of Systems: As mentioned above, aside from mentioned, no fevers or chills. No myalgias or arthralgias. No rash, weight change, headache. No psychiatric complaints. Physical Examination: Vital Signs: Blood pressure 147/67, pulse 70, respiratory rate 18, temperature 98.5, oxygen saturati on 100% on room air, weight 222 pounds. Height 5 feet 6 inches. General: Ms. Brown is resting comfortably, sitting in a chair beside her ICU bed. is also present. She is normocephalic, atraumatic. Sclerae anicteric. Oropharynx is pink and moist. Neck: Supple. Chest: Clear. Heart: Regular. Extremities: Show no edema or cyanosis. Neurologic: She is alert and oriented to person, place, time, and situation. She is alert with the floor, the city, the day, the date, the month, followed all commands appropriately. She has mild dif ficulty with lingual, labial, and guttural sounds. Her cranial nerve examination showed no focal def icits on 2 through 12. Motor examination shows mild diffuse weakness at 5-/5 in upper and lower extr emities. Coordination is intact in upper and lower extremities. Sensory exam shows stocking-glove l oss to light touch and temperature. Reflexes are depressed. She has good stance and stride. Laboratory Studies: White blood cell count 7.2, hemoglobin 11.6, hematocrit 33.2, platelets 253. Co agulation panel is normal. Chemistries: Sodium 126, potassium 4.2, chloride 89, carbon dioxide 31, BUN 12, creatinine 0.71, glu cose ranged from 137-172, calcium 8.7, magnesium 1.9. Creatine kinase 498. Liver function studies a re pending. Cholesterol panel pending. She does have an EEG pending. Assessment: Ms. Villegas is a 67-year-old patient with altered mental status due to severe hyponatremi a, which is likely secondary to prolonged vomiting with excess water intake. There is also the possi bility of syndrome of inappropriate antidiuretic hormone secretion picture. However, her sodium [place] ge is more likely due to exogenous factors, and she is actually being corrected at this point and ret urning towards baseline. Plan: 1.The patient should discontinue whatever supplement she is on that includes Liver Cleanse. 2.Continue with gently replacing sodium. 3.We will follow up on EEG record. 4.The patient does not have any evidence of lasting effects based on brain MRI and on neurological e xamination. 5.The patient may be discharged to the floor and home and then follow up with Dr. Meza in 1 casper h after discharge. NILE/MEKA Voice ID: [id number] Report ID: [id number]
--- NOTE | 2018-03-05 01:51 | PN ---
Date of Progress Note: 03/04/2018 Subjective: The patient was seen this morning for followup. No new complaints problems reported by the patient. She was awake, alert, answering questions appropriately, back to her normal self. Jem es any cough, nausea, vomiting, shortness of breath. Objective: Vital Signs: Reviewed. Intake, output records reviewed. HEENT: Unremarkable. Lungs: Clear to auscultation. Heart: Sounds normal. Abdomen: Soft. Bowel sounds normal. No guarding, rigidity, tenderness, or distention. Extremities: No leg edema. Laboratory Data: White count 7.2, hemoglobin 11.6, platelets 253. Her sodium level last night aroun d 8:30 p.m. was 116, then at 1:25 a.m. it went up to 122 and at that time per instruction hypertonic saline solution was discontinued. At 5:15 this morning, sodium level went up to 128 and decision was made to give her IV fluid D5W 25 cc/hour x2 hours and then at 9:30 a.m., sodium level was 124; at 1: 48 p.m. today, sodium level was 123; and last sodium at 5:56 p.m. was 126. During the course of day today, nurse reported that the patient was having intermittent hallucination. She was talking to her and said something that she was seeing spiders on the [place] and this was just for a brief mo ment, after that she was like her normal self. Yesterday, she had similar problem, but she did not r eport it to anybody. After nurse reported this afternoon, Neurology consultation was requested from Dr. Meza and Dr. Meza has ordered MRI of the brain, which came back unremarkable and EEG of t he brain was also ordered by him. Impression: 1.Hyponatremia. 2.Hypokalemia. 3.Hypertension. 4.Type 2 diabetes mellitus. 5.Hyperlipidemia. 6.Hypothyroidism. Plan: The patient will be kept in ICU today. Throughout the day, we have monitored her electrolytes very closely. She has a PICC line in place and her sodium level overnight got corrected very well. This morning, it went up to 128. At that time, decision was made to give her 2 hours of IV fluid D5 W as we did not want her sodium level to go any further higher today and that IV fluid use has served its purpose. Sodium level is stabilized now and last sodium level was 126. I have put her on 1000 cc per day fluid restriction and I am expecting that over period of next 1 or 2 days, her sodium leve l should get corrected and normalize or at least get higher than 130. We will continue to follow joe Meza and I will see her tomorrow for followup. The patient is tolerating diet very well. Fingerstick blood sugar with sliding scale insulin will be given for diabetes control. [employer] Technician apy to continue to work with the patient. Cortisol stimulation test came back negative. The patient reported this morning when I was talking to her that she saw some physician or somebody in [facility] area for weight loss purposes and she is actually not sure what she was trying to explain it to me, but she has seen this particular physician or this individual and she was given some medication to tamar men[place] that she started taking it, we do not know what that medication is and her will bring tho se bottles, so I can evaluate that. It is very interesting to see that her sodium level, I have know n her for last several years, never had this kind of hyponatremia problem. All of a sudden, she has this significant hyponatremia problem, so I would definitely be interested in looking at the medicati on that she was talking about. Today was the first day that I was made aware of her taking something like this. Her rhabdomyolysis has improved, CPK today is 498. FADIA/MODL Voice ID: [id number] Report ID: [id number]
[2018-03-05 05:32] LABS: Absolute Lymphocytes (CBC) 1.3 K/uL (0.7-4.9); Absolute Monocytes 0.8 K/uL (0.1-1.3); Basophils % 0.8 % (0-1.3); Hematocrit 30.4 % (36.0-45.0); Lymphocytes % 15.8 % (15.3-44.8); MCH 31.6 pg (27.0-35.0); MCV 91.6 fL (80-100); RBC Red Blood Cell Count 3.32 M/uL (3.86-4.86)
[2018-03-05 05:33] LABS: BUN Blood Urea Nitrogen 10 mg/dL (6-20); Bicarbonate 33 mEq/L (21-31); Creatine Phosphokinase 125 IU/L (22-269); Glucose Level 140 mg/dL (65-120); Magnesium 1.7 mg/dL (1.8-2.5); Potassium 4.2 mEq/L (3.6-5.0); Sodium Level 126 mEq/L (135-145)
[2018-03-05] MEDS: CEFTRIAXONE/SWI 1gm 1 GM/10 ML SYR IV SCH ×2 (06:11→18:00)
[2018-03-05] MEDS: LEVOTHYROXINE SOD 0.025 MG TAB PO SCH (06:12)
[2018-03-05] MEDS: LEVOTHYROXINE SOD 0.112 MG TAB PO SCH (06:12)
[2018-03-05] MEDS ORDERED: MAGNESIUM SULFATE 1 gm IVPB 1 GM/100 ML BAG IV ONE (06:36)
[2018-03-05] MEDS: INSULIN -REGULAR HUMAN 50 UNIT/0.5 ML ML SQ SCH ×4 (07:30→22:02)
[2018-03-05] MEDS: AMLODIPINE 5 MG TAB PO SCH (08:00)
[2018-03-05] MEDS: METOPROLOL TAR 25 MG TAB PO SCH ×2 (08:01→21:59)
[2018-03-05] MEDS: FAMOTIDINE 20 MG/2 ML VIAL IV SCH ×2 (08:01→23:01)
[2018-03-05 10:38] LABS: Potassium 4.4 mEq/L (3.6-5.0)
[2018-03-05] MEDS ORDERED: NA CHLORIDE 3% 500 ML IV SCH ×2 (11:00→15:00)
[2018-03-05 14:32] LABS: Potassium 4.5 mEq/L (3.6-5.0)
[2018-03-05] MEDS ORDERED: MAGNESIUM HYDROXIDE 8% 30 ML PO ONE (14:50)
[2018-03-05] MEDS: ENOXAPARIN 40 MG/0.4 ML SQ SCH (18:00)
[2018-03-05 18:31] LABS: Potassium 4.3 mEq/L (3.6-5.0)
[2018-03-05 21:32] LABS: Potassium 3.9 mEq/L (3.6-5.0)
[2018-03-05] MEDS ORDERED: FAMOTIDINE 20 MG/2 ML VIAL IV ONE (22:36)
[2018-03-06] MEDS ORDERED: NA CHLORIDE 3% 500 ML IV SCH
--- NOTE | 2018-03-06 00:06 | PN ---
Date of Progress Note: 03/05/2018 Subjective: The patient was seen this morning for followup. Lying in bed in ICU. No new complaints or problems reported overnight by the patient's ICU nurse or patient. Objective: Vital Signs: Reviewed. Intake and output records reviewed. HEENT: Unremarkable. Lungs: Clear to auscultation. No rhonchi or rales. Heart: Sounds normal. Abdomen: Soft. Bowel sounds normal. No guarding, rigidity, tenderness, or distention. Extremities: No leg edema. Laboratory Data: White count 8.5, hemoglobin 10.5, platelets 229. Sodium level at 4 o'clock in the morning was 126, at 10 o'clock it was 123, and at 2 p.m. it was 124. After sodium level dropped to 1 23 at 10 o'clock, she was given 3% saline solution. CPK was normal today. Impression: 1.Hyponatremia. 2.Hypokalemia. 3.Hypomagnesemia. 4.Hypertension. 5.Type 2 diabetes mellitus. 6.Acute rhabdomyolysis. 7.Rule out pneumonia. Plan: We will go ahead and continue current medications which is ceftriaxone as antibiotic. DVT pro phylaxis with Lovenox. Continue current antihypertensive medication and sliding scale insulin for di abetes control. After patient's sodium dropped to 123 at 10 a.m. today, we gave her 3% hypertonic sa line solution at 25 cc/hour for 2 hours and hour later on her sodium was 124, so we decided to go ahe ad and give another round of hypertonic saline solution again at 25 cc/hour for 2 hours and we will w ait for 1 hour after the infusion completed and draw Chem-7. Overall, her condition is better. We w ill continue current medications. Physical Therapy to help ambulate the patient. I will see how she is by tomorrow. She will remain in ICU today and maybe tomorrow, depending on what we think about n eed for hypertonic saline solution. FADIA/MODL Voice ID: [id number] Report ID: [id number]
[2018-03-06 05:40] LABS: BUN Blood Urea Nitrogen 12 mg/dL (6-20); Bicarbonate 34 mEq/L (21-31); Glucose Level 107 mg/dL (65-120); Magnesium 1.7 mg/dL (1.8-2.5); Potassium 4.2 mEq/L (3.6-5.0); Sodium Level 129 mEq/L (135-145)
[2018-03-06] MEDS: LEVOTHYROXINE SOD 0.025 MG TAB PO SCH (06:26)
[2018-03-06] MEDS: LEVOTHYROXINE SOD 0.112 MG TAB PO SCH (06:26)
[2018-03-06] MEDS: CEFTRIAXONE/SWI 1gm 1 GM/10 ML SYR IV SCH ×2 (06:26→17:15)
[2018-03-06] MEDS ORDERED: MAGNESIUM SULFATE 1 gm IVPB 1 GM/100 ML BAG IV ONE (07:11)
[2018-03-06] MEDS: INSULIN -REGULAR HUMAN 50 UNIT/0.5 ML ML SQ SCH ×4 (07:30→20:18)
[2018-03-06] MEDS: METOPROLOL TAR 25 MG TAB PO SCH ×2 (08:22→20:16)
[2018-03-06] MEDS: AMLODIPINE 5 MG TAB PO SCH (08:23)
[2018-03-06] MEDS: RANITIDINE 150 MG TABLET PO SCH (08:27)
[2018-03-06 11:48] LABS: Potassium 4.4 mEq/L (3.6-5.0)
--- NOTE | 2018-03-06 15:10 | EEG ---
CHART: [id number] TEST ID#: [id number] DATE OF STUDY: 03/05/2018 THE EEG WAS RECORDED PORTABLE IN THE ICU ON A 17 CHANNEL MACHINE. ELECTRODES WERE APPLIED IN THE USUAL MANNER USING THE INTERNATIONAL 10-20 SYSTEM. THE WAKING BACKGROUND RHYTHM IN THIS RECORD CONSISTS OF VERY WELL DEVELOPED AND WELL ORGANIZED WAVES OF 10 HZ., MAXIMAL IN THE POSTERIOR HEAD REIGONS WHICH ATTENUATE NORMALLY WITH EYE OPENING. LOW-VOLTAGE 18-22 HZ ACTIVITY IS EXPRESSED IN THE FRONTAL REGIONS. THERE ARE NO FOCAL OR LATERALIZING FEATURES. NO EPILEPTIFORM ACTIVITY APPEARS. SLEEP OCCURRED NATURALLY. IN ADDITION NORMAL SLEEP PATTERNS ARE PRESENT. HYPERVENTILATION WAS NOT PERFORMED. PHOTIC STIMULATION PRODUCED FAIR DRIVING BILATERALLY. IMPRESSION: NORMAL EEG FOR THE AGE OF THE PATIENT IN [place], DROWSINESS AND SLEEP.
[2018-03-06] MEDS: ENOXAPARIN 40 MG/0.4 ML SQ SCH (16:21)
--- NOTE | 2018-03-07 00:55 | PN ---
Date of Progress Note: 03/06/2018 Subjective: The patient was seen this morning for followup. No new complaints or problems reported. She was lying in bed, like her normal self. Awake, alert, oriented, not appearing confused at all. Slept well last night. Denies any new complaints this morning. Objective: HEENT: Examination unremarkable. Lungs: Clear to auscultation. No rhonchi or rales. Heart: Sounds normal. Abdomen: Soft. Bowel sounds normal. No guarding, rigidity, tenderness, or distention. Extremities: No leg edema. Laboratory Data: Sodium 129, potassium 4.2, chloride 90, bicarb 34, BUN 12, creatinine 0.57, glucose 107, magnesium 1.7. Her sodium last night was 126 at 8:40 p.m. Repeat sodium this afternoon close to lunch time was 132. Impression: 1.Hyponatremia. 2.Syndrome of inappropriate antidiuretic hormone. 3.Hypertension. 4.Rule out pneumonia. 5.Hyperlipidemia. 6.Type 2 diabetes mellitus. Plan: We will go ahead and transfer the patient out of ICU to regular room. See copy of transfer or ramez. She is on 1000 cc per day fluid restriction which we will continue at this point. Sodium level has gradually improved over the period of this hospitalization and she is very stable, does not need any ICU stay, and we will transfer her to medical floor. See copy of transfer order for details and I will see her tomorrow for followup. FADIA/MODL Voice ID: [id number] Report ID: [id number]
[2018-03-07] MEDS: CEFTRIAXONE/SWI 1gm 1 GM/10 ML SYR IV SCH ×2 (05:47→18:00)
[2018-03-07] MEDS: LEVOTHYROXINE SOD 0.112 MG TAB PO SCH (05:48)
[2018-03-07] MEDS: LEVOTHYROXINE SOD 0.025 MG TAB PO SCH (05:48)
[2018-03-07 06:17] VITALS: BMI 36.1
[2018-03-07 07:04] LABS: BUN Blood Urea Nitrogen 15 mg/dL (6-20); Bicarbonate 32 mEq/L (21-31); Glucose Level 130 mg/dL (65-120); Magnesium 1.6 mg/dL (1.8-2.5); Potassium 4.3 mEq/L (3.6-5.0); Sodium Level 130 mEq/L (135-145)
[2018-03-07 07:25] LABS: Absolute Lymphocytes (CBC) 1.3 K/uL (0.7-4.9); Absolute Monocytes 0.7 K/uL (0.1-1.3); Absolute Neutrophil 6.3 K/uL (1.8-8.0); Basophils % 0.8 % (0-1.3); Eosinophils % 4.6 % (0-4.4); Lymphocytes % 14.5 % (15.3-44.8); MCH 31.7 pg (27.0-35.0); MCV 93.2 fL (80-100); MPV 8.4 fL (7.6-11.3); Monocytes % 7.7 % (3.3-12.3); RBC Red Blood Cell Count 3.01 M/uL (3.86-4.86)
[2018-03-07] MEDS: INSULIN -REGULAR HUMAN 50 UNIT/0.5 ML ML SQ SCH ×4 (07:30→21:00)
[2018-03-07] MEDS ORDERED: MAGNESIUM SULFATE 1 gm IVPB 1 GM/100 ML BAG IV ONE (08:19)
--- NOTE | 2018-03-07 09:19 | RAD REPORT ---
EXAM DESCRIPTION: Ike Pa And Lat (2 Views)03/07/2018 8:45 am CLINICAL HISTORY: Cough COMPARISON: February 2018 FINDINGS: Mild bibasilar lung opacities are suspected. The heart is mildly enlarged. A PICC line has its tip in the superior vena cava. IMPRESSION: Mild bibasilar lung opacities may indicate pneumonitis or pneumonia
[2018-03-07] MEDS: RANITIDINE 150 MG TABLET PO SCH (10:02)
[2018-03-07] MEDS: METOPROLOL TAR 25 MG TAB PO SCH ×2 (10:02→20:41)
[2018-03-07] MEDS: AMLODIPINE 5 MG TAB PO SCH (10:02)
[2018-03-07] MEDS ORDERED: MAGNESIUM HYDROXIDE 8% 30 ML PO ONE (10:15)
[2018-03-07] MEDS: MAGNESIUM OXIDE 400 MG TAB PO SCH ×2 (11:00→20:41)
--- NOTE | 2018-03-07 12:48 | RAD REPORT ---
EXAM DESCRIPTION: VAS - Extremity Venous Uni Ltd - 03/07/2018 12:35 pm CLINICAL HISTORY: Right arm swelling. COMPARISON: None. FINDINGS: Right upper extremity venous system was interrogated with Doppler technique. Normal flow, compressibility and augmentation was noted. There is no DVT present. IMPRESSION: No evidence of right upper extremity deep venous thrombosis.
[2018-03-07 13:04] LABS: BUN Blood Urea Nitrogen 18 mg/dL (6-20); Bicarbonate 32 mEq/L (21-31); Glucose Level 123 mg/dL (65-120); Potassium 4.4 mEq/L (3.6-5.0); Sodium Level 129 mEq/L (135-145)
[2018-03-07] MEDS ORDERED: levoFLOXacin 500 MG TAB PO ONE (18:06)
[2018-03-07] MEDS: ENOXAPARIN 40 MG/0.4 ML SQ SCH (18:28)
--- NOTE | 2018-03-07 23:41 | PN ---
Date of Progress Note: 03/07/2018 Subjective: The patient was seen this morning for followup. She was transferred out of ICU to [facility] room yesterday evening. This morning when I saw her, she was sitting at bedside, not in any distr ess. No complaints reported. Slept well last night. Denies any chest pain or shortness of breath. No confusion. Objective: Vital Signs: Reviewed. HEENT: Unremarkable. Lungs: Bilateral good equal air entry. Clear to auscultation except rales in the left basal region. Heart: Heart sounds normal. Abdomen: Soft. Bowel sounds normal. No guarding, rigidity, tenderness, or distention. Extremities: No leg edema. Laboratory Data: White count 8.7, hemoglobin 9.5, platelets 218. Sodium level was 130 this morning, potassium 4.3, chloride 91, bicarb 32, BUN 15, creatinine 0.61, glucose 130, magnesium 1.6. Repeat sodium this afternoon was 129, potassium 4.4, chloride 89, bicarb 32, BUN 18, creatinine 0.64, glucos e 123. Chest x-ray showed mild bibasilar lung opacity, indicating pneumonia. Venous Doppler of righ t upper extremity was done today, negative for DVT. Impression: 1.Hyponatremia. 2.Syndrome of inappropriate antidiuretic hormone. 3.Pneumonia. 4.Hypertension. 5.Type 2 diabetes mellitus. Plan: The patient's area of PICC line was noted to be a little bit irritated as nurse reported after I saw her this morning, so PICC line was removed. DVT study was negative. We will go ahead and con tinue current medications including DVT prophylaxis, on antihypertensive medication. Diabetes management. Repeat blood work tomorrow morning. Keep the patient on 1000 cc per day fluid restriction. We will see her tomorrow. Depending on her blood work tomorrow, we will decide if we c an discharge her to go home tomorrow or not, and we will change her antibiotics to oral antibiotics. FADIA/MODL Voice ID: [id number] Report ID: [id number]
[2018-03-08] MEDS: LEVOTHYROXINE SOD 0.112 MG TAB PO SCH (06:00)
[2018-03-08] MEDS: LEVOTHYROXINE SOD 0.025 MG TAB PO SCH (06:00)
[2018-03-08 06:04] LABS: Absolute Lymphocytes (CBC) 1.6 K/uL (0.7-4.9); Absolute Monocytes 0.6 K/uL (0.1-1.3); Absolute Neutrophil 5.8 K/uL (1.8-8.0); Eosinophils % 5.6 % (0-4.4); Hematocrit 30.9 % (36.0-45.0); MCH 32.7 pg (27.0-35.0); Monocytes % 6.8 % (3.3-12.3); RBC Red Blood Cell Count 3.32 M/uL (3.86-4.86)
[2018-03-08 06:29] LABS: Magnesium 1.9 mg/dL (1.8-2.5); Potassium 4.8 mEq/L (3.6-5.0)
[2018-03-08] MEDS: INSULIN -REGULAR HUMAN 50 UNIT/0.5 ML ML SQ SCH (07:30)
[2018-03-08] MEDS ORDERED: levoFLOXacin 500 MG TAB PO SCH (09:00)
[2018-03-08] MEDS: METOPROLOL TAR 25 MG TAB PO SCH (09:39)
[2018-03-08] MEDS: AMLODIPINE 5 MG TAB PO SCH (09:39)
[2018-03-08] MEDS: MAGNESIUM OXIDE 400 MG TAB PO SCH (09:39)
[2018-03-08] MEDS: RANITIDINE 150 MG TABLET PO SCH (09:40)
[2018-03-08 09:47] VITALS: O2SAT 95
[2018-03-08 10:45] VITALS: BP 142/71; TEMP 97.1
--- NOTE | 2018-03-09 02:16 | DS ---
Date of Discharge: 03/08/2018 Disposition: Discharged to go home. Physical Examination: HEENT: Unremarkable. Lungs: Clear to auscultation. Heart: Sounds normal. Abdomen: Soft, bowel sounds normal. No guarding, rigidity, tenderness, or distention. Extremities: No leg edema. Hospital Course: A 67-year-old female patient who came into emergency room with complaints of feelin g weak, dizzy, some cough, and vomiting. Please see dictated H and P for more information. The george ent was sick for 2-3 days with cough, congestion, and some vomiting. She did not eat or drink anythi ng for almost 2 days kept on taking her medications and was noted to have some dizziness, weakness, c onfusion, and she was brought into the emergency room by her . I saw her in the emergency kris m soon after she came, and she was evaluated. Further testing was done in the emergency room, and she was admitted to intensive care unit because of severe hyponatremia. Her serum sodium level was 108, when she came in. Chest x-ray had raised possibility of infiltrate in the lung bases. CAT scan of the head was negative. When she came in, she was hemodynamically stable. She received initially hyp ertonic saline solution for first 2 hours in emergency room at 50 cc/hour and subsequently we gave he r normal saline. Her sodium level was 108, when she came in, went up to 109 and then it dropped down to 107, in the evening time of admission. She was started on hypertonic saline solution again and m ajority of this hospital stay for her was in ICU. We carefully monitor her electrolytes very frequen tly and with careful use of hypertonic saline solution we were able to correct her sodium level slowl y over period of time. What we have determined is that she has syndrome of inappropriate antidiureti c hormone secretion. Cortisol stimulation test was negative. Her lowest sodium level was 107 and hi ghest sodium level was 132, which was today as well as the day before yesterday. She was transferred out of ICU to regular room day before yesterday, and she has remained stable in the medical floor. She has participated well with the physical therapy and ambulating very well. Initially, she was on liquid diet and subsequently her diet was advanced, and she has tolerated diet very well. While she was in ICU, she had some hallucinations for couple of days, and this was first 48-72 hours, she had t his trouble. Neurology consultation was obtained from Dr. Meza. There was no focal neurological deficit, and this hallucination was very intermittent. The patient's confusion and hallucination co mpletely resolved. MRI of the brain was done which was normal. EEG was done which was normal. She was given IV Rocephin from the time she came into the hospital, and PICC line was placed. Her initia l white count was 12.6, and white count came down to normal and remained normal. Last white count to day 8.7. Last chest x-ray was yesterday showing some minimum increased density in the both lung base s indicating likely pneumonia. She had some redness and skin irritation around the PICC line inserti on site yesterday that was noted. So PICC line was removed, and DVT study of the right upper extremi ty was negative for DVT. This morning, her right arm appears normal. No evidence of any thrombophle bitis except 1 cm or less than 1 cm area of some skin irritation around the PICC line insertion site which should resolve on its own without any intervention. No evidence of cellulitis. As of yesterda y she was started on Levaquin and will continue that for 1 more week. The patient was taking some ki nd of [id number] supplement that was given to her by some physician in [place] who was also assisting her with some laser treatment what she describes for weight loss, and I have advised her no t to undergo any such treatment at this point and not to take any supplement that was given to her by this physician. We do not know if this particular supplement has contributed to her hyponatremia pr oblem or not, but it will be best and safe not to take this kind of medication, and this was instruct ed to patient and her both. Both of them were also instructed not to take any hydrochlorothi azide and rosuvastatin. Return instructions will be given also pertaining to this medication changes . She had rhabdomyolysis which resolved completely also. As far as her diuretic medication and chol esterol medication she has been on the same medication for a long time. She never had hyponatremia p adrienne like this as she gets blood work done on outpatient basis very frequently for monitoring. She had slight anemia when she came in. Hemoglobin was 11.2, last hemoglobin today 10.8. She did not r equire any blood transfusion. Her baseline cortisol was 13.8, 30-minute cortisol 35.6, 60-minute cor tisol 53.5, and 90-minute cortisol, 59.8. Discharge Medications And Instructions: Continue all prior home medication except following changes. 1.Stop hydrochlorothiazide and stop rosuvastatin. 2.Start Levaquin 500 mg p.o. daily for 1 week. 3.Follow up at my office on 03/19/2018, at 10 a.m. 4.Come to my office on 03/17/2018 between 8 and 9 a.m. for fasting blood test. Final Diagnoses: 1.Hyponatremia. 2.Syndrome of inappropriate antidiuretic hormone secretion. 3.Pneumonia. 4.Hypokalemia. 5.Hypomagnesemia. 6.Anemia. 7.Rhabdomyolysis. 8.Hypertension. 9.Type 2 diabetes mellitus. 10.Mixed hyperlipidemia. 11.Hypothyroidism. 12.Allergic rhinitis. 13.Gastroesophageal reflux disease. FADIA/MODL Voice ID: [id number] Report ID: [id number]
== END 2018-03-08 11:12 | disposition home or self-care (01) | DRG 644 ==
LOC: ER 09:31 → ERHOLD 12:12 → 3RD-ICU 19:15 → 2ND 03-06 22:40
PROVIDERS: ADMIT Internal Medicine; ATTEND Internal Medicine
PROC: 02HV33Z Insertion of Infusion Device into Superior Vena Cava, Percutaneous Approach (ICD-10-PCS; principal; 2018-03-03)
DX: E22.2 Syndrome of inappropriate secretion of antidiuretic hormone (principal); E87.1 Hypo-osmolality and hyponatremia; M62.82 Rhabdomyolysis; I10 Essential (primary) hypertension; E78.2 Mixed hyperlipidemia; E11.8 Type 2 diabetes mellitus with unspecified complications; E03.9 Hypothyroidism, unspecified; E87.6 Hypokalemia; E83.42 Hypomagnesemia; D64.9 Anemia, unspecified; J30.9 Allergic rhinitis, unspecified; I25.10 Atherosclerotic heart disease of native coronary artery without angina pectoris; K21.9 Gastro-esophageal reflux disease without esophagitis
CPT/HCPCS: 36415; 51702; 70450; 70551; 71045; 71046; 80048; 80061; 80076; 81003; 82024; 82533; 82550; 82553; 82962; 83735; 83880; 83930; 83935; 84300; 84443; 84484; 85025; 85610; 85730; 93005; 93971; 95816; 96361; 96365; 96366; 96375; 97163; 99285; J0696; J0834; J1650; J2405; J3475; J7030